=== PATIENT | female | born 1995 | race Caucasian/White ===

== ENCOUNTER → 2017-07-18 | Outpatient (CLI) | payer MEDICAID | LOC: FIMAGING 11:06 | PROVIDERS: ATTEND Midwife | DX: O09.212 Supervision of pregnancy with history of pre-term labor, second trimester (principal); Z3A.19 19 weeks gestation of pregnancy ==

== ENCOUNTER → 2017-07-31 | Outpatient (CLI) | payer MEDICAID | LOC: FIMAGING 09:45 | PROVIDERS: ATTEND Midwife | DX: Z36.89 Encounter for other specified antenatal screening (principal); Z3A.20 20 weeks gestation of pregnancy ==

== ENCOUNTER → 2017-08-14 | Outpatient (CLI) | payer MEDICAID | LOC: FIMAGING 14:32 | PROVIDERS: ATTEND Midwife | DX: O09.212 Supervision of pregnancy with history of pre-term labor, second trimester (principal); Z3A.22 22 weeks gestation of pregnancy ==

== ENCOUNTER → 2017-08-22 | Outpatient (CLI) | payer MEDICAID | LOC: FIMAGING 12:46 | PROVIDERS: ATTEND Midwife | DX: O26.872 Cervical shortening, second trimester (principal); O09.212 Supervision of pregnancy with history of pre-term labor, second trimester; Z3A.23 23 weeks gestation of pregnancy ==

== ENCOUNTER → 2017-11-02 | Outpatient (CLI) | payer MEDICAID | LOC: FIMAGING 09:08 | PROVIDERS: ATTEND Midwife | DX: O09.213 Supervision of pregnancy with history of pre-term labor, third trimester (principal); Z3A.34 34 weeks gestation of pregnancy ==